=== PATIENT | female | born 1985 | race African-American/Black ===

== ENCOUNTER 2020-06-15 02:33 | Inpatient (IN) | payer OTHER ==
[2020-06-15] MEDS ORDERED: Sodium Chloride 0.9% 2.5 ML Syringe FLUSH PRN (03:03)
[2020-06-15] MEDS ORDERED: Carboprost Tromethamine 250 MCG/1 ML Amp IM PRN (03:03)
[2020-06-15] MEDS ORDERED: Water For Irrigation,Sterile 1,000 ML Container IRR PRN (03:03)
[2020-06-15] MEDS ORDERED: Sodium Chloride 0.9% 10 ML SDV IV PRN (03:03)
[2020-06-15] MEDS ORDERED: Methylergonovine 0.2 MG/1 ML Amp IM PRN (03:03)
[2020-06-15] MEDS ORDERED: Tranexamic Acid 1,000 MG in Sodium Chloride 0.9% 100 ML IV PRN (03:03)
[2020-06-15] MEDS ORDERED: Nalbuphine 10 MG/1 ML Vial IVPUSH PRN (03:03)
[2020-06-15] MEDS ORDERED: Lidocaine 1% 50 ML MDV INJECT PRN (03:03)
[2020-06-15] MEDS ORDERED: Butorphanol 1 MG/ML SDV IVPUSH PRN (03:03)
[2020-06-15] MEDS ORDERED: Misoprostol 200 MCG Tab PO PRN (03:03)
[2020-06-15] MEDS ORDERED: Sodium Chloride 0.9% 10 ML Syringe FLUSH PRN (03:03)
[2020-06-15] MEDS ORDERED: Oxytocin/0.9 % Sodium Chloride 30 UNIT/500 ML BAG IV SCH ×2 (03:15→09:45)
[2020-06-15] MEDS: Lactated Ringers 1,000 ML IV SCH ×3 (03:30→09:00)
[2020-06-15] MEDS ORDERED: Ropivacaine HCl/PF 100 ML ONE (03:56)
[2020-06-15] MEDS ORDERED: fentaNYL 100 MCG/2 ML SDV ONE ×2 (03:56→03:58)
[2020-06-15] MEDS ORDERED: Bupivacaine 0.25% 10 ML SDV ONE (03:57)
[2020-06-15] MEDS ORDERED: Oxytocin/0.9 % Sodium Chloride 30 UNIT/500 ML BAG ONE (04:21)
--- NOTE | 2020-06-15 04:28 | PCM.SN.2 ---
- Free Text/Narrative Note: Anesthesia time 9549-3214 Called to LDR 4 for difficult IV placement. US used to place 18g in RAC on first attempt (after chlorhexidine scrub). Tegaderm dressing applied. Tape to secure.
--- NOTE | 2020-06-15 04:33 | PCM.PREANE ---
Preanesthetic Assessment - Procedure Proposed Procedure: Late entry (bedside assessing patient at 0335) ASHIA for active labor. Approved by Dr. Lyons. - Anesthesia/Transfusion/Family Hx Anesthesia History: No Prior Anesthesia (Denies previous surgery or anesthesia. Denies epidural for first baby.) Family History of Anesthesia Reaction: No Transfusion History: No Prior Transfusion(s) - Review of Systems General: No Symptoms Pulmonary: No Symptoms Cardiovascular: No Symptoms Gastrointestinal: No Symptoms Neurological: No Symptoms Other: Reports: None (Denies any medical problems) - Physical Assessment NPO Status Date: 06/15/20 (NPO for food, clear liquids okay) NPO Status Time: 13:30 Height: 1.6 m Weight: 91.626 kg ASA Class: 2 Mental Status: Alert & Oriented x3 Airway Class: Mallampati = 2 Dentition: Reports: Normal Dentition Thyro-Mental Finger Breadths: 3 Mouth Opening Finger Breadths: 3 ROM/Head Extension: Full Lungs: Normal Respiratory Effort Cardiovascular: Regular Rate, Regular Rhythm - Lab Values: Laboratory Last Values WBC 8.48 K/uL (4.0-11.0) 06/15/20 03:20 RBC 5.05 M/uL (4.30-5.90) 06/15/20 03:20 Hgb 10.9 g/dL (12.0-16.0) L 06/15/20 03:20 Hct 34.7 % (36.0-46.0) L 06/15/20 03:20 MCV 68.7 fL (80.0-98.0) L 06/15/20 03:20 MCH 21.6 pg (27.0-32.0) L 06/15/20 03:20 MCHC 31.4 g/dL (31.0-37.0) 06/15/20 03:20 RDW Std Deviation 43.9 fl (28.0-62.0) 06/15/20 03:20 RDW Coeff of Pacheco 18 % (11.0-15.0) H 06/15/20 03:20 Plt Count 160 K/uL (150-400) 06/15/20 03:20 Nucleated RBC % 0.0 /100WBC 06/15/20 03:20 Nucleated RBCs # 0 K/uL 06/15/20 03:20 SARS-CoV-2 RNA (ANDREW) NEGATIVE (NEGATIVE) 06/15/20 03:16 Blood Type O POSITIVE 06/15/20 03:20 Antibody Screen NEGATIVE 06/15/20 03:20 - Allergies Allergies/Adverse Reactions: Allergies Allergy/AdvReac Type Severity Reaction Status Date / Time No Known Allergies Allergy Verified 06/14/20 19:23 - Anesthesia Plan Pre-Op Medication Ordered: None - Acknowledgements Anesthesia Type Planned: Epidural Pt an Appropriate Candidate for the Planned Anesthesia: Yes Alternatives and Risks of Anesthesia Discussed w Pt/Guardian: Yes Pt/Guardian Understands and Agrees with Anesthesia Plan: Yes PreAnesthesia Questionnaire - CURRENT (IN HOUSE) MEDS Current Meds: Current Medications Butorphanol Tartrate (Stadol) 1 mg IVPUSH Q1H PRN PRN Reason: Pain Carboprost Tromethamine (Hemabate Ds) 250 mcg IM ASDIRECTED PRN PRN Reason: Post Hemorrhage Oxytocin/Sodium Chloride (Oxytocin 30 Unit/500 Ml-Ns) 30 unit in 500 mls @ 500 mls/hr IV TITRATE [facility] Tranexamic Acid 1,000 mg/ (Sodium Chloride) 110 mls @ 660 mls/hr IV ONETIME PRN PRN Reason: Bleeding Lactated Ringer's (Ringers, Lactated) 1,000 mls @ 150 mls/hr IV ASDIRECTED [facility] Lidocaine HCl (Xylocaine 1%) 50 ml INJECT ONETIME PRN PRN Reason: Laceration repair Methylergonovine Maleate (Methergine) 0.2 mg IM ASDIRECTED PRN PRN Reason: Post Hemorrhage Misoprostol (Cytotec) 200 mcg PO ONETIME PRN PRN Reason: Post Hemorrhage Nalbuphine HCl (Nubain) 10 mg IVPUSH Q1H PRN PRN Reason: Pain (severe 7-10) Sodium Chloride (Saline Flush) 10 ml FLUSH ASDIRECTED PRN PRN Reason: Keep Vein Open Sodium Chloride (Saline Flush) 2.5 ml FLUSH ASDIRECTED PRN PRN Reason: Keep Vein Open Sodium Chloride (Normal Saline) 10 ml IV ASDIRECTED PRN PRN Reason: IV Use Sterile Water (Sterile Water For Irrigation) 1,000 ml IRR ASDIRECTED PRN PRN Reason: delivery Discontinued Medications Bupivacaine HCl (Sensorcaine-Mpf 0.25%) Confirm Administered Dose 10 ml .ROUTE .STK-MED ONE Stop: 06/15/20 03:58 Fentanyl (Sublimaze) Confirm Administered Dose 200 mcg .ROUTE .STK-MED ONE Stop: 06/15/20 03:57 Fentanyl (Sublimaze) Confirm Administered Dose 200 mcg .ROUTE .STK-MED ONE Stop: 06/15/20 03:59 Ropivacaine (Naropin 0.2%) Confirm Administered Dose 100 mls @ as directed .ROUTE .ST-MED ONE Stop: 06/15/20 03:57 Oxytocin/Sodium Chloride (Oxytocin 30 Unit/500 Ml-Ns) Confirm Administered Dose 30 unit in 500 mls @ as directed .ROUTE .ST-MED ONE Stop: 06/15/20 04:22
--- NOTE | 2020-06-15 04:41 | PCM.SN.2 ---
- Free Text/Narrative Note: Anesthesia time [id number] To LDR 4, physical assessment and medical history. Discussed risks, benefits, procedure, maintenance, [employer], and anesthesia coverage. All questions answered and concerns addressed. 0340- Consent signed by patient with RN witness. 0345- sitting position, 700ml fluid bolus complete and continuing to infuse, sterile prep and drape, eye protection, hat, sterile gloves. Attempt #1 successful at L3-4, TRISTAN with saline at 7cm with 17g Tuohy with no paresthesias. 0349- catheter threaded without resistance to 13cm. Negative to aspiration for both CSF and heme. 0350- test dose negative. 0400- bolus of 7ml 0.25% PF bupivicaine. 0404- infusion started. 0418- SBP 84, FHR symptomatic, 200mcg phenylephrine IV bolus. 0420- SBP now 110-120's, FHR has since recovered. 0433- T10 level achieved, pt reports satisfactory pain control, VSS (SBP 110-120's).
--- NOTE | 2020-06-15 04:43 | PCM.LDHP ---
L&D History of Present Illness - General Date of Service: 06/15/20 Admit Problem/Dx: Patient Status Order with Admit Dx/Problem 06/15/20 03:04 Patient Status [ADT] Routine Admission Diagnosis/Problem Admission Diagnosis/Problem - planned Source of Information: Patient History Limitations: Reports: No Limitations - History of Present Illness Improves with: Reports: None Worsens with: Reports: None Associated Symptoms: Reports: N - Related Data Allergies/Adverse Reactions: Allergies Allergy/AdvReac Type Severity Reaction Status Date / Time No Known Allergies Allergy Verified 06/14/20 19:23 H&P Review of Systems - Review of Systems: Review Of Systems: See Below General: Reports: No Symptoms HEENT: Reports: No Symptoms Pulmonary: Reports: No Symptoms Cardiovascular: Reports: No Symptoms Gastrointestinal: Reports: No Symptoms Genitourinary: Reports: No Symptoms Musculoskeletal: Reports: No Symptoms Skin: Reports: No Symptoms Psychiatric: Reports: No Symptoms Neurological: Reports: No Symptoms Hematologic/Lymphatic: Reports: No Symptoms Immunologic: Reports: No Symptoms L&D Exam - Exam Exam: See Below - Vital Signs Weight: 91.626 kg - OB Specific Contraction Intensity: Moderate Movement: Active Heart Tones: Present Presentation: Vertex - Knott Score Knott Score Cervix Position: Anterior Knott Score Consistency: Soft Knott Score Effacement: 51-70% Knott Score Dilation: > 5 cm Knott Score 's Station: -2 Knott Score Total: 10 - Exam General: Alert, Oriented HEENT: PERRLA, Conjunctiva Clear, EACs Clear, EOMI, Hearing Intact, Mucosa Moist & [place], Nares Patent, Normal Nasal Septum, Posterior Pharynx Clear, TMs Clear Neck: Supple, Trachea Midline Lungs: Clear to Auscultation, Normal Respiratory Effort Cardiovascular: Regular Rate, Regular Rhythm GI/Abdominal Exam: Normal Bowel Sounds, Soft, Non-Tender, No Organomegaly, No Distention, No Abnormal Bruit, No Mass, Pelvis Stable Rectal Exam: Normal Exam, Normal Rectal Tone Genitourinary: Normal external exam, Normal bimanual exam, Normal speculum exam Back Exam: Normal Inspection, Full Range of Motion Extremities: Normal Inspection, Normal Range of Motion, Non-Tender, No Pedal Edema, Normal Capillary Refill Skin: Warm, Dry, Intact Neurological: Cranial Nerves Intact, Reflexes Equal Bilateral Psychiatric: Alert, Normal Affect, Normal Mood - Patient Data Lab Results Last 24 hrs: Laboratory Results - last 24 hr 06/15/20 06/15/20 06/15/20 Range/Units 03:16 03:20 03:20 WBC 8.48 (4.0-11.0) K/uL RBC 5.05 (4.30-5.90) M/uL Hgb 10.9 L (12.0-16.0) g/dL Hct 34.7 L (36.0-46.0) % MCV 68.7 L (80.0-98.0) fL MCH 21.6 L (27.0-32.0) pg MCHC 31.4 (31.0-37.0) g/dL RDW Std Deviation 43.9 (28.0-62.0) fl RDW Coeff of Pacheco 18 H (11.0-15.0) % Plt Count 160 (150-400) K/uL Nucleated RBC % 0.0 /100WBC Nucleated RBCs # 0 K/uL SARS-CoV-2 RNA (ANDREW) NEGATIVE (NEGATIVE) Blood Type O POSITIVE Antibody Screen NEGATIVE Result Diagrams: 06/15/20 03:20 Problem List Initiated/Reviewed/Updated: Yes Orders Last 24hrs: Active Orders 24 hr Category Date Time Status Patient Status [ADT] Routine ADT 06/15/20 03:04 Active Heart Tones [RC] CONTINUOUS Care 06/15/20 03:04 Active Non Stress Test [RC] PER UNIT ROUTINE Care 06/15/20 03:04 Active May Shower [RC] ASDIRECTED Care 06/15/20 03:04 Active Notify Provider [RC] PRN Care 06/15/20 03:04 Active Up ad Leanne [RC] ASDIRECTED Care 06/15/20 03:04 Active Vaginal Exam [RC] PRN Care 06/15/20 03:04 Active Vital Signs [RC] PER UNIT ROUTINE Care 06/15/20 03:04 Active RPR (SYPHILIS SERO) W/ RFLX [REF] Routine Lab 06/15/20 03:20 Received Butorphanol [Stadol] Med 06/15/20 03:03 Active 1 mg IVPUSH Q1H PRN Carboprost Tromethamine [Hemabate DS] Med 06/15/20 03:03 Active 250 mcg IM ASDIRECTED PRN Lactated Ringers [Ringers, Lactated] 1,000 ml Med 06/15/20 03:15 Active IV ASDIRECTED Lidocaine 1% [Xylocaine 1%] Med 06/15/20 03:03 Active 50 ml INJECT ONETIME PRN Methylergonovine [Methergine] Med 06/15/20 03:03 Active 0.2 mg IM ASDIRECTED PRN Nalbuphine [Nubain] Med 06/15/20 03:03 Active 10 mg IVPUSH Q1H PRN Oxytocin/0.9 % Sodium Chloride [Oxytocin 30 Unit/500 ML Med 06/15/20 03:15 Active -NS] 30 unit in 500 ml IV TITRATE Sodium Chloride 0.9% [Normal Saline] Med 06/15/20 03:03 Active 10 ml IV ASDIRECTED PRN Sodium Chloride 0.9% [Saline Flush] Med 06/15/20 03:03 Active 10 ml FLUSH ASDIRECTED PRN Sodium Chloride 0.9% [Saline Flush] Med 06/15/20 03:03 Active 2.5 ml FLUSH ASDIRECTED PRN Tranexamic Acid [Cyklokapron] 1,000 mg Med 06/15/20 03:03 Active Sodium Chloride 0.9% [Normal Saline] 100 ml IV ONETIME Water For Irrigation,Sterile [Sterile Water for Med 06/15/20 03:03 Active Irrigation] 1,000 ml IRR ASDIRECTED PRN miSOPROStoL [Cytotec] Med 06/15/20 03:03 Active 200 mcg PO ONETIME PRN Scalp Electrode [WOMSER] Per Unit Routine Oth 06/15/20 03:04 Ordered Peripheral IV Insertion Adult [OM.PC] Routine Oth 06/15/20 03:04 Ordered Resuscitation Status Routine Resus Stat 06/15/20 03:03 Ordered Medication Orders Butorphanol Tartrate (Stadol) 1 mg IVPUSH Q1H PRN PRN Reason: Pain Carboprost Tromethamine (Hemabate Ds) 250 mcg IM ASDIRECTED PRN PRN Reason: Post Hemorrhage Oxytocin/Sodium Chloride (Oxytocin 30 Unit/500 Ml-Ns) 30 unit in 500 mls @ 500 mls/hr IV TITRATE [facility] Tranexamic Acid 1,000 mg/ (Sodium Chloride) 110 mls @ 660 mls/hr IV ONETIME PRN PRN Reason: Bleeding Lactated Ringer's (Ringers, Lactated) 1,000 mls @ 150 mls/hr IV ASDIRECTED [facility] Lidocaine HCl (Xylocaine 1%) 50 ml INJECT ONETIME PRN PRN Reason: Laceration repair Methylergonovine Maleate (Methergine) 0.2 mg IM ASDIRECTED PRN PRN Reason: Post Hemorrhage Misoprostol (Cytotec) 200 mcg PO ONETIME PRN PRN Reason: Post Hemorrhage Nalbuphine HCl (Nubain) 10 mg IVPUSH Q1H PRN PRN Reason: Pain (severe 7-10) Sodium Chloride (Saline Flush) 10 ml FLUSH ASDIRECTED PRN PRN Reason: Keep Vein Open Sodium Chloride (Saline Flush) 2.5 ml FLUSH ASDIRECTED PRN PRN Reason: Keep Vein Open Sodium Chloride (Normal Saline) 10 ml IV ASDIRECTED PRN PRN Reason: IV Use Sterile Water (Sterile Water For Irrigation) 1,000 ml IRR ASDIRECTED PRN PRN Reason: delivery Assessment/Plan Comment:: Term in active labor.
[2020-06-15] MEDS ORDERED: oxyCODONE 5 MG Tab PO PRN (16:21)
[2020-06-15] MEDS ORDERED: Docusate Sodium 100 MG Cap PO PRN (16:21)
[2020-06-15] MEDS ORDERED: Bisacodyl 10 MG Supp RECTAL PRN (16:21)
[2020-06-15] MEDS ORDERED: Ibuprofen 400 MG Tab PO PRN (16:21)
[2020-06-15] MEDS ORDERED: Benzocaine/Menthol 20%-0.5% Spray 78 GM Cannister TOP PRN (16:21)
[2020-06-15] MEDS ORDERED: Lanolin 100% Cream 7 GM Tube TOP PRN (16:21)
[2020-06-15] MEDS ORDERED: Acetaminophen 500 MG Tab PO PRN ×2 (16:21)
[2020-06-15] MEDS ORDERED: Witch Hazel Medicated Pads 40/Jar TOP PRN (16:21)
[2020-06-15] MEDS: Ibuprofen 800 MG Tab PO PRN (21:17)
[2020-06-16] MEDS: Ibuprofen 800 MG Tab PO PRN (07:56)
--- NOTE | 2020-06-16 08:27 | PCM48HPAN ---
Post Anesthesia Note - EVALUATION WITHIN 48HRS OF ANESTHETIC Vital Signs in Normal Range: Yes Patient Participated in Evaluation: Yes Respiratory Function Stable: Yes Airway Patent: Yes Cardiovascular Function Stable: Yes Hydration Status Stable: Yes Pain Control Satisfactory: Yes Nausea and Vomiting Control Satisfactory: Yes Mental Status Recovered: Yes Vital Signs: Last Vital Signs Temp 36.4 C 06/16/20 04:34 Pulse 76 06/16/20 04:34 Resp 16 06/16/20 04:34 BP 124/68 06/16/20 04:34 Pulse Ox 98 06/16/20 04:34 - COMMENTS/OBSERVATIONS Free Text/Narrative:: No problems noted post
--- NOTE | 2020-06-16 09:08 | PCM.DCSUM1 ---
Discharge Summary - Hospital Course Free Text/Narrative:: Shy is a 35 yo PPD0 S/P uncomplicated OVD to term NBF. O pos, RI, GBS neg. Hemodynamically stable, afebrile. Patient is fairly well and supplementing with formula, resting comfortably in bed with in bassinet at bedside. Patient reports she is eating, voiding, ambulating independently and without difficulty. Patient denies any problems or concerns at this time except mild-moderate intermittent uterine cramping relieved with ibuprofen. Patient reports small vaginal bleeding with no clots. Patient verbalizes her readiness to be discharged home. Diagnosis: Stroke: No - Discharge Data Discharge Date: 06/16/20 Discharge Disposition: Home, Self-Care 01 Condition: Good - Referral to Home Health Primary Care Physician: PCP None - Patient Instructions Diet: Usual Diet as Tolerated, Regular Diet as Tolerated, Drink 8-10+ Glasses/Day, No Alcoholic Beverages Activity: No Strenuous Activities Driving: May Drive Today Driving, Other: May use sitz bath for perineal comfort Showering/Bathing: May Shower Notify Provider of: Fever, Increased Pain, Swelling and Redness, Drainage, Nausea and/or Vomiting - Discharge Plan *PRESCRIPTION DRUG MONITORING PROGRAM REVIEWED*: No *COPY OF PRESCRIPTION DRUG MONITORING REPORT IN PATIENT HUGO: No Prescriptions/Med Rec: Ibuprofen [Motrin] 800 mg PO Q8H PRN #90 tablet PRN Reason: Pain Home Medications: Home Meds Ibuprofen [Motrin] 800 mg PO Q8H PRN #90 tablet 06/16/20 [Rx] Oxygen Therapy Mode: Room Air Referrals: [facility] [Outside] Destini Bravo CNM [Mid-] - 07/27/20 1:00 pm - Discharge Summary/Plan Comment DC Time >30 min.: Yes (Plan to D/C this PM) - General Info Date of Service: 06/16/20 Admission Dx/Problem (Free Text: Patient Status Order with Admit Dx/Problem 06/15/20 03:04 Patient Status [ADT] Routine Admission Diagnosis/Problem Admission Diagnosis/Problem - planned Functional Status: Reports: Pain Controlled - Review of Systems General: Reports: No Symptoms HEENT: Reports: No Symptoms Pulmonary: Reports: No Symptoms Cardiovascular: Reports: No Symptoms Gastrointestinal: Reports: No Symptoms Genitourinary: Reports: No Symptoms Musculoskeletal: Reports: No Symptoms Skin: Reports: No Symptoms Neurological: Reports: No Symptoms Psychiatric: Reports: No Symptoms - Patient Data Vitals - Most Recent: Last Vital Signs Temp 97.8 F 06/16/20 07:45 Pulse 72 06/16/20 07:45 Resp 14 06/16/20 07:45 BP 136/74 06/16/20 07:45 Pulse Ox 99 06/16/20 07:45 Weight - Most Recent: 202 lb Lab Results - Last 24 hrs: Laboratory Results - last 24 hr 06/16/20 Range/Units 05:11 Hgb 9.6 L (12.0-16.0) g/dL Hct 30.5 L (36.0-46.0) % Med Orders - Current: Current Medications Acetaminophen (Tylenol Extra Strength) 500 mg PO Q4H PRN PRN Reason: Pain Acetaminophen (Tylenol Extra Strength) 1,000 mg PO Q4H PRN PRN Reason: Pain Last Admin: 06/15/20 21:17 Dose: 1,000 mg Documented by: Benzocaine/Menthol (Dermoplast Pain Relief 20%-0.5% [place]) 78 gm TOP ASDIRECTED PRN PRN Reason: Perineal Comfort Measure Last Admin: 06/15/20 20:20 Dose: 1 spray Documented by: Bisacodyl (Dulcolax) 10 mg RECTAL ONETIME PRN PRN Reason: Constipation Docusate Sodium (Colace) 100 mg PO BID PRN PRN Reason: Constipation Emollient Ointment (Lansinoh Hpa) 0 gm TOP ASDIRECTED PRN PRN Reason: Sore Nipples Last Admin: 06/15/20 20:20 Dose: 1 gm Documented by: Ibuprofen (Motrin) 400 mg PO Q4H PRN PRN Reason: Pain Ibuprofen (Motrin) 800 mg PO Q6H PRN PRN Reason: Pain Last Admin: 06/16/20 07:56 Dose: 800 mg Documented by: Oxycodone HCl (Oxycodone) 5 mg PO Q2H PRN PRN Reason: Pain Witch Evangelina (Tucks) 1 pad TOP ASDIRECTED PRN PRN Reason: comfort care Last Admin: 06/15/20 20:19 Dose: 1 pad Documented by: Discontinued Medications Bupivacaine HCl (Sensorcaine-Mpf 0.25%) Confirm Administered Dose 10 ml .ROUTE .STK-MED ONE Stop: 06/15/20 03:58 Last Admin: 06/15/20 13:38 Dose: Not Given Documented by: Butorphanol Tartrate (Stadol) 1 mg IVPUSH Q1H PRN PRN Reason: Pain Carboprost Tromethamine (Hemabate Ds) 250 mcg IM ASDIRECTED PRN PRN Reason: Post Hemorrhage Fentanyl (Sublimaze) Confirm Administered Dose 200 mcg .ROUTE .STK-MED ONE Stop: 06/15/20 03:57 Last Admin: 06/15/20 13:38 Dose: Not Given Documented by: Fentanyl (Sublimaze) Confirm Administered Dose 200 mcg .ROUTE .ST-MED ONE Stop: 06/15/20 03:59 Last Admin: 06/15/20 13:38 Dose: Not Given Documented by: Oxytocin/Sodium Chloride (Oxytocin 30 Unit/500 Ml-Ns) 30 unit in 500 mls @ 500 mls/hr IV TITRATE [facility] Tranexamic Acid 1,000 mg/ (Sodium Chloride) 110 mls @ 660 mls/hr IV ONETIME PRN PRN Reason: Bleeding Lactated Ringer's (Ringers, Lactated) 1,000 mls @ 150 mls/hr IV ASDIRECTED [facility] Last Admin: 06/15/20 09:00 Dose: 150 mls/hr Documented by: Ropivacaine (Naropin 0.2%) Confirm Administered Dose 100 mls @ as directed .ROUTE .ST-MED ONE Stop: 06/15/20 03:57 Last Admin: 06/15/20 13:38 Dose: Not Given Documented by: Oxytocin/Sodium Chloride (Oxytocin 30 Unit/500 Ml-Ns) Confirm Administered Dose 30 unit in 500 mls @ as directed .ROUTE .ST-MED ONE Stop: 06/15/20 04:22 Last Admin: 06/15/20 13:38 Dose: Not Given Documented by: Oxytocin/Sodium Chloride (Oxytocin 30 Unit/500 Ml-Ns) 30 unit in 500 mls @ 2 mls/hr IV TITRATE [facility]; Protocol Last Infusion: 06/15/20 12:40 Dose: 0 munits/min, 0 mls/hr Documented by: Lidocaine HCl (Xylocaine 1%) 50 ml INJECT ONETIME PRN PRN Reason: Laceration repair Methylergonovine Maleate (Methergine) 0.2 mg IM ASDIRECTED PRN PRN Reason: Post Hemorrhage Misoprostol (Cytotec) 200 mcg PO ONETIME PRN PRN Reason: Post Hemorrhage Nalbuphine HCl (Nubain) 10 mg IVPUSH Q1H PRN PRN Reason: Pain (severe 7-10) Sodium Chloride (Saline Flush) 10 ml FLUSH ASDIRECTED PRN PRN Reason: Keep Vein Open Sodium Chloride (Saline Flush) 2.5 ml FLUSH ASDIRECTED PRN PRN Reason: Keep Vein Open Sodium Chloride (Normal Saline) 10 ml IV ASDIRECTED PRN PRN Reason: IV Use Sterile Water (Sterile Water For Irrigation) 1,000 ml IRR ASDIRECTED PRN PRN Reason: delivery - Exam General: Reports: Alert, Oriented, Cooperative, No Acute Distress HEENT: Reports: Pupils Equal, Pupils Reactive, Mucous Membr. Moist/[place] Neck: Reports: Supple Lungs: Reports: Clear to Auscultation, Normal Respiratory Effort Cardiovascular: Reports: Regular Rate, Regular Rhythm GI/Abdominal Exam: Normal Bowel Sounds, Soft, Non-Tender, No Organomegaly, No Distention (Female) Exam: Normal External Exam, Enlarged Uterus ( uterus, firm U-2), Vaginal Bleeding (Small rubra lochia, no clots) Rectal (Female) Exam: Deferred Back Exam: Reports: Normal Inspection, Full Range of Motion Extremities: Normal Inspection, Normal Range of Motion, Non-Tender, No Pedal Edema, Normal Capillary Refill Skin: Reports: Warm, Dry, Intact Wound/Incisions: Reports: No Drainage (Approximated, hemostatic, edematous) Neurological: Reports: No New Focal Deficit Psy/Mental Status: Reports: Alert, Normal Affect, Normal Mood
--- NOTE | 2020-06-16 10:38 | PCM.PNPP ---
- General Info Date of Service: 06/16/20 Functional Status: Reports: Pain Controlled - Review of Systems General: Reports: No Symptoms HEENT: Reports: No Symptoms Pulmonary: Reports: No Symptoms Cardiovascular: Reports: No Symptoms Gastrointestinal: Reports: No Symptoms Genitourinary: Reports: No Symptoms Musculoskeletal: Reports: No Symptoms Skin: Reports: No Symptoms Neurological: Reports: No Symptoms Psychiatric: Reports: No Symptoms - General Info Date of Service: 06/16/20 - Patient Data Vital Signs - Most Recent: Last Vital Signs Temp 36.6 C 06/16/20 07:45 Pulse 72 06/16/20 07:45 Resp 14 06/16/20 07:45 BP 136/74 06/16/20 07:45 Pulse Ox 99 06/16/20 07:45 Weight - Most Recent: 91.626 kg Lab Results - Last 24 Hours: Laboratory Results - last 24 hr 06/16/20 Range/Units 05:11 Hgb 9.6 L (12.0-16.0) g/dL Hct 30.5 L (36.0-46.0) % Med Orders - Current: Current Medications Acetaminophen (Tylenol Extra Strength) 500 mg PO Q4H PRN PRN Reason: Pain Acetaminophen (Tylenol Extra Strength) 1,000 mg PO Q4H PRN PRN Reason: Pain Last Admin: 06/15/20 21:17 Dose: 1,000 mg Documented by: Benzocaine/Menthol (Dermoplast Pain Relief 20%-0.5% [place]) 78 gm TOP ASDIRECTED PRN PRN Reason: Perineal Comfort Measure Last Admin: 06/15/20 20:20 Dose: 1 spray Documented by: Bisacodyl (Dulcolax) 10 mg RECTAL ONETIME PRN PRN Reason: Constipation Docusate Sodium (Colace) 100 mg PO BID PRN PRN Reason: Constipation Emollient Ointment (Lansinoh Hpa) 0 gm TOP ASDIRECTED PRN PRN Reason: Sore Nipples Last Admin: 06/15/20 20:20 Dose: 1 gm Documented by: Ibuprofen (Motrin) 400 mg PO Q4H PRN PRN Reason: Pain Ibuprofen (Motrin) 800 mg PO Q6H PRN PRN Reason: Pain Last Admin: 06/16/20 07:56 Dose: 800 mg Documented by: Oxycodone HCl (Oxycodone) 5 mg PO Q2H PRN PRN Reason: Pain Witch Evangelina (Tucks) 1 pad TOP ASDIRECTED PRN PRN Reason: comfort care Last Admin: 06/15/20 20:19 Dose: 1 pad Documented by: Discontinued Medications Bupivacaine HCl (Sensorcaine-Mpf 0.25%) Confirm Administered Dose 10 ml .ROUTE .STK-MED ONE Stop: 06/15/20 03:58 Last Admin: 06/15/20 13:38 Dose: Not Given Documented by: Butorphanol Tartrate (Stadol) 1 mg IVPUSH Q1H PRN PRN Reason: Pain Carboprost Tromethamine (Hemabate Ds) 250 mcg IM ASDIRECTED PRN PRN Reason: Post Hemorrhage Fentanyl (Sublimaze) Confirm Administered Dose 200 mcg .ROUTE .STK-MED ONE Stop: 06/15/20 03:57 Last Admin: 06/15/20 13:38 Dose: Not Given Documented by: Fentanyl (Sublimaze) Confirm Administered Dose 200 mcg .ROUTE .STNOZA-MED ONE Stop: 06/15/20 03:59 Last Admin: 06/15/20 13:38 Dose: Not Given Documented by: Oxytocin/Sodium Chloride (Oxytocin 30 Unit/500 Ml-Ns) 30 unit in 500 mls @ 500 mls/hr IV TITRATE GURMEET Tranexamic Acid 1,000 mg/ (Sodium Chloride) 110 mls @ 660 mls/hr IV ONETIME PRN PRN Reason: Bleeding Lactated Ringer's (Ringers, Lactated) 1,000 mls @ 150 mls/hr IV ASDIRECTED [facility] Last Admin: 06/15/20 09:00 Dose: 150 mls/hr Documented by: Ropivacaine (Naropin 0.2%) Confirm Administered Dose 100 mls @ as directed .ROUTE .STK-MED ONE Stop: 06/15/20 03:57 Last Admin: 06/15/20 13:38 Dose: Not Given Documented by: Oxytocin/Sodium Chloride (Oxytocin 30 Unit/500 Ml-Ns) Confirm Administered Dose 30 unit in 500 mls @ as directed .ROUTE .STK-MED ONE Stop: 06/15/20 04:22 Last Admin: 06/15/20 13:38 Dose: Not Given Documented by: Oxytocin/Sodium Chloride (Oxytocin 30 Unit/500 Ml-Ns) 30 unit in 500 mls @ 2 mls/hr IV TITRATE GURMEET; Protocol Last Infusion: 06/15/20 12:40 Dose: 0 munits/min, 0 mls/hr Documented by: Lidocaine HCl (Xylocaine 1%) 50 ml INJECT ONETIME PRN PRN Reason: Laceration repair Methylergonovine Maleate (Methergine) 0.2 mg IM ASDIRECTED PRN PRN Reason: Post Hemorrhage Misoprostol (Cytotec) 200 mcg PO ONETIME PRN PRN Reason: Post Hemorrhage Nalbuphine HCl (Nubain) 10 mg IVPUSH Q1H PRN PRN Reason: Pain (severe 7-10) Sodium Chloride (Saline Flush) 10 ml FLUSH ASDIRECTED PRN PRN Reason: Keep Vein Open Sodium Chloride (Saline Flush) 2.5 ml FLUSH ASDIRECTED PRN PRN Reason: Keep Vein Open Sodium Chloride (Normal Saline) 10 ml IV ASDIRECTED PRN PRN Reason: IV Use Sterile Water (Sterile Water For Irrigation) 1,000 ml IRR ASDIRECTED PRN PRN Reason: delivery - Infant Interaction Support Person: - Recovery Exam Fundal Tone: Firm Fundal Level: At Umbilicus Fundal Placement: Midline Lochia Amount: Scant Perineum Description: Edematous Episiotomy/Laceration: Approximated Bladder Status: Voiding - Exam General: Alert, Oriented HEENT: Pupils Equal Neck: Supple Lungs: Clear to Auscultation, Normal Respiratory Effort Cardiovascular: Regular Rate, Regular Rhythm GI/Abdominal Exam: Normal Bowel Sounds, Soft, Non-Tender, No Organomegaly, No Distention, No Abnormal Bruit, No Mass, Pelvis Stable Extremities: Normal Inspection, Normal Range of Motion, Non-Tender, No Pedal Edema, Normal Capillary Refill Skin: Warm, Dry, Intact Wound/Incisions: Healing Well Neurological: No New Focal Deficit Psy/Mental Status: Alert, Normal Affect, Normal Mood - Problem List Review Problem List Initiated/Reviewed/Updated: Yes - Plan Plan:: Term in active labor.
--- NOTE | 2020-06-16 11:33 | OR ---
SURGEON: German Lyons MD DATE OF PROCEDURE: 06/15/2020 This patient is 35 years old. She is para 1-0-0-1. She had 1 vaginal delivery 17 years ago. She is followed in our clinic primarily by our nurse midwifery service. The patient had uncomplicated care. Her diabetes screen was normal and her GBS status was negative. She was admitted in labor. At the time of the admission, she was 6 to 7 cm. She had regular contractions. She had a spontaneous rupture of the membrane, it was meconium tinged. The patient had epidural anesthesia for labor analgesia and then she required Pitocin for augmentation of labor. However, the Pitocin was stopped because the patient had variable deceleration. She continued to progress rather slowly. She progressed almost to anterior lip with a small lip, and I was able to reduce that lip without any problem manually. Because the patient was exhausted, Kiwi vacuum extraction was placed into place. With the patient pushing, I was able to accomplish delivery of the head without any problem. Destini Bravo, cover remover, finished the rest of the delivery. Fetus cried immediately. score and weight were not available at the time of the dictation. The placenta delivered spontaneous, complete, and intact. There was first-degree laceration, repaired without any problem. Estimated blood loss was 300 to 400 mL and heart rate was category 1 through the entire process of labor except on 1 of 2 occasions the patient had a variable deceleration. There was no complication in the delivery and the labor process. ROSALIE / SOCORRO /[id number]
--- NOTE | 2020-06-17 09:28 | PCM.PNPP ---
- General Info Date of Service: 06/17/20 Functional Status: Reports: Pain Controlled - Review of Systems General: Reports: No Symptoms HEENT: Reports: No Symptoms Pulmonary: Reports: No Symptoms Cardiovascular: Reports: No Symptoms Gastrointestinal: Reports: No Symptoms Genitourinary: Reports: No Symptoms Musculoskeletal: Reports: No Symptoms Skin: Reports: No Symptoms Neurological: Reports: No Symptoms Psychiatric: Reports: No Symptoms - General Info Date of Service: 06/17/20 - Patient Data Vital Signs - Most Recent: Last Vital Signs Temp 37.0 C 06/17/20 04:00 Pulse 71 06/17/20 04:00 Resp 16 06/17/20 04:00 BP 128/75 06/17/20 04:00 Pulse Ox 99 06/17/20 04:00 Weight - Most Recent: 91.626 kg Med Orders - Current: Current Medications Acetaminophen (Tylenol Extra Strength) 500 mg PO Q4H PRN PRN Reason: Pain Acetaminophen (Tylenol Extra Strength) 1,000 mg PO Q4H PRN PRN Reason: Pain Last Admin: 06/15/20 21:17 Dose: 1,000 mg Documented by: Benzocaine/Menthol (Dermoplast Pain Relief 20%-0.5% [place]) 78 gm TOP ASDIRECTED PRN PRN Reason: Perineal Comfort Measure Last Admin: 06/15/20 20:20 Dose: 1 spray Documented by: Bisacodyl (Dulcolax) 10 mg RECTAL ONETIME PRN PRN Reason: Constipation Docusate Sodium (Colace) 100 mg PO BID PRN PRN Reason: Constipation Emollient Ointment (Lansinoh Hpa) 0 gm TOP ASDIRECTED PRN PRN Reason: Sore Nipples Last Admin: 06/15/20 20:20 Dose: 1 gm Documented by: Ibuprofen (Motrin) 400 mg PO Q4H PRN PRN Reason: Pain Ibuprofen (Motrin) 800 mg PO Q6H PRN PRN Reason: Pain Last Admin: 06/16/20 07:56 Dose: 800 mg Documented by: Oxycodone HCl (Oxycodone) 5 mg PO Q2H PRN PRN Reason: Pain Witch Evangelina (Tucks) 1 pad TOP ASDIRECTED PRN PRN Reason: comfort care Last Admin: 06/15/20 20:19 Dose: 1 pad Documented by: Discontinued Medications Bupivacaine HCl (Sensorcaine-Mpf 0.25%) Confirm Administered Dose 10 ml .ROUTE .STK-MED ONE Stop: 06/15/20 03:58 Last Admin: 06/15/20 13:38 Dose: Not Given Documented by: Butorphanol Tartrate (Stadol) 1 mg IVPUSH Q1H PRN PRN Reason: Pain Carboprost Tromethamine (Hemabate Ds) 250 mcg IM ASDIRECTED PRN PRN Reason: Post Hemorrhage Fentanyl (Sublimaze) Confirm Administered Dose 200 mcg .ROUTE .STK-MED ONE Stop: 06/15/20 03:57 Last Admin: 06/15/20 13:38 Dose: Not Given Documented by: Fentanyl (Sublimaze) Confirm Administered Dose 200 mcg .ROUTE .STK-MED ONE Stop: 06/15/20 03:59 Last Admin: 06/15/20 13:38 Dose: Not Given Documented by: Oxytocin/Sodium Chloride (Oxytocin 30 Unit/500 Ml-Ns) 30 unit in 500 mls @ 500 mls/hr IV TITRATE GURMEET Tranexamic Acid 1,000 mg/ (Sodium Chloride) 110 mls @ 660 mls/hr IV ONETIME PRN PRN Reason: Bleeding Lactated Ringer's (Ringers, Lactated) 1,000 mls @ 150 mls/hr IV ASDIRECTED GURMEET Last Admin: 06/15/20 09:00 Dose: 150 mls/hr Documented by: Ropivacaine (Naropin 0.2%) Confirm Administered Dose 100 mls @ as directed .ROUTE .ST-MED ONE Stop: 06/15/20 03:57 Last Admin: 06/15/20 13:38 Dose: Not Given Documented by: Oxytocin/Sodium Chloride (Oxytocin 30 Unit/500 Ml-Ns) Confirm Administered Dose 30 unit in 500 mls @ as directed .ROUTE .STK-MED ONE Stop: 06/15/20 04:22 Last Admin: 06/15/20 13:38 Dose: Not Given Documented by: Oxytocin/Sodium Chloride (Oxytocin 30 Unit/500 Ml-Ns) 30 unit in 500 mls @ 2 mls/hr IV TITRATE GURMEET; Protocol Last Infusion: 06/15/20 12:40 Dose: 0 munits/min, 0 mls/hr Documented by: Lidocaine HCl (Xylocaine 1%) 50 ml INJECT ONETIME PRN PRN Reason: Laceration repair Methylergonovine Maleate (Methergine) 0.2 mg IM ASDIRECTED PRN PRN Reason: Post Hemorrhage Misoprostol (Cytotec) 200 mcg PO ONETIME PRN PRN Reason: Post Hemorrhage Nalbuphine HCl (Nubain) 10 mg IVPUSH Q1H PRN PRN Reason: Pain (severe 7-10) Sodium Chloride (Saline Flush) 10 ml FLUSH ASDIRECTED PRN PRN Reason: Keep Vein Open Sodium Chloride (Saline Flush) 2.5 ml FLUSH ASDIRECTED PRN PRN Reason: Keep Vein Open Sodium Chloride (Normal Saline) 10 ml IV ASDIRECTED PRN PRN Reason: IV Use Sterile Water (Sterile Water For Irrigation) 1,000 ml IRR ASDIRECTED PRN PRN Reason: delivery - Infant Interaction Infant Disposition, : [place] in Room with Family Support Person: - Recovery Exam Fundal Tone: Firm Fundal Level: 1 Fingerbreadths Below Umbilicus Fundal Placement: Midline Lochia Amount: Scant Lochia Color: Rubra/Red Perineum Description: Edematous Episiotomy/Laceration: Approximated Bladder Status: Voiding - Exam General: Alert, Oriented HEENT: Pupils Equal Neck: Supple Lungs: Clear to Auscultation, Normal Respiratory Effort Cardiovascular: Regular Rate, Regular Rhythm GI/Abdominal Exam: Normal Bowel Sounds, Soft, Non-Tender, No Organomegaly, No Distention, No Abnormal Bruit, No Mass, Pelvis Stable Extremities: Normal Inspection, Normal Range of Motion, Non-Tender, No Pedal Edema, Normal Capillary Refill Skin: Warm, Dry, Intact Wound/Incisions: Healing Well Neurological: No New Focal Deficit Psy/Mental Status: Alert, Normal Affect, Normal Mood - Problem List Review Problem List Initiated/Reviewed/Updated: Yes - Assessment Assessment:: Held the discharge of this patient yesterday because the patient baby is not discharged because of bilirubin light situation she will be discharged today - Plan Plan:: Term in active labor.
== END 2020-06-17 14:00 | disposition home or self-care (01) | DRG 807 ==
LOC: MW.OBCHECK 02:33 → MW.OB 02:34 → MW.OBCHECK 03:04 → MW.OB 03:04 → OBSVTOIN 16:00 → MW.OB 20:36
PROVIDERS: ADMIT Obstetrics & Gynecology; ATTEND Obstetrics & Gynecology
PROC: 10D07Z6 Extraction of Products of Conception, Vacuum, Via Natural or Artificial Opening (ICD-10-PCS; principal; 2020-06-15)
PROC: 0HQ9XZZ Repair Perineum Skin, External Approach (ICD-10-PCS; 2020-06-15)
PROC: 3E0R3BZ Introduction of Anesthetic Agent into Spinal Canal, Percutaneous Approach (ICD-10-PCS; 2020-06-15)
PROC: 00HU33Z Insertion of Infusion Device into Spinal Canal, Percutaneous Approach (ICD-10-PCS; 2020-06-15)
DX: O77.0 Labor and delivery complicated by meconium in amniotic fluid (principal); Z37.0 Single live birth; O70.0 First degree perineal laceration during delivery; O76 Abnormality in fetal heart rate and rhythm complicating labor and delivery; Z20.828 Contact with and (suspected) exposure to other viral communicable diseases; Z3A.38 38 weeks gestation of pregnancy
CPT/HCPCS: 01967; 36410; 36415; 59025; 59409; 85014; 85018; 85027; 86592; 86850; 86900; 86901; A9270-GY; J2590; J7120; U0002

== ENCOUNTER 2023-05-02 09:39 | Emergency (ER) | payer BC ==
[2023-05-02 10:25] LABS: APPEARANCE,URINE SLT CLOUDY; BILIRUBIN,URINE NEGATIVE (NEGATIVE); COLOR,URINE YELLOW; GLUCOSE,URINE NEGATIVE (NEGATIVE); KETONES,URINE NEGATIVE (NEGATIVE); LEUKOCYTE ESTERASE,URINE NEGATIVE (NEGATIVE); NITRITE,URINE NEGATIVE (NEGATIVE); OCCULT BLOOD,URINE LARGE (NEGATIVE); PROTEIN,URINE TRACE mg/dL (NEGATIVE); UROBILINOGEN,URINE 0.2 EU/dL (<2.0)
[2023-05-02 11:01] LABS: AMORPHOUS SEDIMENT,URINE LIGHT (NEGATIVE); BACTERIA,URINE 1+ (NEGATIVE); EPITHELIAL CELLS,URINE FEW (NONE-FEW); RBC,URINE 25-30 (0-2/HPF); WBC,URINE NONE SEEN (0-5/HPF)
[2023-05-02 11:15] LABS: BASOPHILS PERCENT AUTO 0.3 % (0.0-1.5); HEMATOCRIT 33.4 % (36.0-46.0); HEMOGLOBIN 10.6 g/dL (12.0-16.0); LYMPHOCYTES PERCENT AUTO 26.1 % (16.0-40.0); MEAN CORPUSCULAR HEMOGLOBIN 21.5 pg (27.0-32.0); MEAN CORPUSCULAR HGB CONC 31.7 g/dL (31.0-37.0); MEAN CORPUSCULAR VOLUME 67.9 fL (80.0-98.0); MONOCYTES ABSOLUTE AUTO 0.3 K/uL (0.0-0.8); MONOCYTES PERCENT AUTO 7.1 % (0.0-15.0); NEUTROPHILS ABSOLUTE AUTO 2.6 K/uL (1.4-5.7); NEUTROPHILS PERCENT AUTO 65.5 % (48.0-80.0); NRBC ABSOLUTE 0 K/uL; PLATELET COUNT,PLT 149 K/uL (150-400); RED BLOOD CELL COUNT 4.92 M/uL (4.30-5.90); WHITE BLOOD CELL COUNT,WBC 3.95 K/uL (4.0-11.0)
== END 2023-05-02 12:56 | disposition home or self-care (01) ==
LOC: MW.ED 09:39
DX: O20.9 Hemorrhage in early pregnancy, unspecified (principal); Z3A.12 12 weeks gestation of pregnancy
CPT/HCPCS: 36415; 76801; 76801-26; 81001; 84702; 85025; 86900; 86901; 99283; 99284

== ENCOUNTER 2023-06-23 20:21 | Emergency (ER) | payer BC ==
[2023-06-23] MEDS ORDERED: Sodium Chloride 0.9% 10 ML Syringe FLUSH PRN (21:19)
[2023-06-23] MEDS ORDERED: Sodium Chloride 0.9% 2.5 ML Syringe FLUSH PRN (21:19)
[2023-06-23 21:40] LABS: BASOPHILS PERCENT AUTO 0.4 % (0.0-1.5); EOSINOPHILS PERCENT AUTO 0.4 % (0.0-7.0); HEMATOCRIT 35.2 % (36.0-46.0); LYMPHOCYTES ABSOLUTE AUTO 1.6 K/uL (0.6-2.4); LYMPHOCYTES PERCENT AUTO 32.1 % (16.0-40.0); MEAN CORPUSCULAR HEMOGLOBIN 21.4 pg (27.0-32.0); MEAN CORPUSCULAR HGB CONC 31.3 g/dL (31.0-37.0); MEAN CORPUSCULAR VOLUME 68.6 fL (80.0-98.0); MONOCYTES ABSOLUTE AUTO 0.4 K/uL (0.0-0.8); MONOCYTES PERCENT AUTO 8.1 % (0.0-15.0); NRBC ABSOLUTE 0 K/uL; RED BLOOD CELL COUNT 5.13 M/uL (4.30-5.90); WHITE BLOOD CELL COUNT,WBC 5.04 K/uL (4.0-11.0)
[2023-06-23 21:54] LABS: PLATELET COUNT,PLT 149 K/uL (150-400)
[2023-06-23 22:02] LABS: A/G RATIO 0.8 (0.9-1.6); ALBUMIN 3.6 g/dL (3.4-5.0); BILIRUBIN TOTAL 0.2 mg/dL (0.2-1.0); CALCIUM 8.7 mg/dL (8.5-10.1); CARBON DIOXIDE,CO2 24.8 mmol/L (21.0-32.0); CREATININE 0.6 mg/dL (0.6-1.0); EST CRCL DRUG DOSING (CG) 103.1 mL/min
[2023-06-23 22:04] LABS: BILIRUBIN,URINE NEGATIVE (NEGATIVE); COLOR,URINE YELLOW; GLUCOSE,URINE NEGATIVE (NEGATIVE); KETONES,URINE NEGATIVE (NEGATIVE); LEUKOCYTE ESTERASE,URINE NEGATIVE (NEGATIVE); NITRITE,URINE NEGATIVE (NEGATIVE); OCCULT BLOOD,URINE LARGE (NEGATIVE); PH,URINE 6.5 (5.0-8.0); PROTEIN,URINE NEGATIVE (NEGATIVE); UROBILINOGEN,URINE 0.2 EU/dL (<2.0)
[2023-06-23 22:06] LABS: APPEARANCE,URINE SLT CLOUDY; BACTERIA,URINE FEW (NEGATIVE); EPITHELIAL CELLS,URINE FEW (NONE-FEW); MUCUS,URINE LIGHT (NONE-MOD); RBC,URINE 15-20 (0-2/HPF)
== END 2023-06-23 22:55 | disposition home or self-care (01) ==
LOC: MW.ED 20:21
DX: O20.9 Hemorrhage in early pregnancy, unspecified (principal)
CPT/HCPCS: 36415; 80053; 81001; 83690; 84702; 85025; 99284; J3490; 99283

== ENCOUNTER 2023-07-03 00:29 | Observation (INO) | payer BC ==
[2023-07-03] MEDS ORDERED: Ondansetron 4 MG/2 ML SDV IVPUSH PRN (00:50)
[2023-07-03] MEDS ORDERED: Labetalol 100 MG Tab PO ONE ×2 (00:59→08:49)
[2023-07-03 03:38] LABS: HEMATOCRIT 33.9 % (37.0-47.0); HEMOGLOBIN 10.5 g/dL (12.0-16.0); MEAN CORPUSCULAR HEMOGLOBIN 21.1 pg (28.0-32.0); MEAN CORPUSCULAR VOLUME 68.1 fL (83.0-99.0); MEAN PLATELET VOLUME 10.8 fL (9.4-12.3); PLATELET COUNT,PLT 169 K/uL (150-400); RED BLOOD CELL COUNT 4.98 M/uL (4.10-5.30); WHITE BLOOD CELL COUNT,WBC 5.39 K/uL (3.9-11.3)
[2023-07-03 03:47] LABS: BILIRUBIN,URINE NEGATIVE (NEGATIVE); COLOR,URINE YELLOW; GLUCOSE,URINE NEGATIVE (NEGATIVE); KETONES,URINE NEGATIVE (NEGATIVE); LEUKOCYTE ESTERASE,URINE NEGATIVE (NEGATIVE); NITRITE,URINE NEGATIVE (NEGATIVE); OCCULT BLOOD,URINE LARGE (NEGATIVE); PH,URINE 6.5 (5.0-8.0); PROTEIN,URINE NEGATIVE (NEGATIVE); UROBILINOGEN,URINE 0.2 EU/dL (<2.0)
[2023-07-03] MEDS ORDERED: Misoprostol 200 MCG Tab VAG SCH (04:00)
[2023-07-03] MEDS ORDERED: Misoprostol 200 MCG Tab PO PRN (04:46)
[2023-07-03] MEDS ORDERED: Sodium Chloride 0.9% 10 ML Syringe FLUSH PRN (04:46)
[2023-07-03] MEDS ORDERED: Sodium Chloride 0.9% 20 ML SDV IV PRN (04:46)
[2023-07-03] MEDS ORDERED: Carboprost Tromethamine 250 MCG/1 mL Vial IM PRN (04:46)
[2023-07-03] MEDS ORDERED: Methylergonovine 0.2 MG/1 ML Amp IM PRN (04:46)
[2023-07-03] MEDS ORDERED: Lidocaine 1% 50 ML MDV INJECT PRN (04:46)
[2023-07-03] MEDS ORDERED: Water For Irrigation,Sterile 1,000 ML Container IRR PRN (04:46)
[2023-07-03] MEDS ORDERED: Tranexamic Acid IN NACL,ISO-OS 1,000 MG in Premix Bag 1 BAG IV PRN ×2 (04:46)
[2023-07-03] MEDS ORDERED: Sodium Chloride 0.9% 2.5 ML Syringe FLUSH PRN (04:46)
[2023-07-03] MEDS ORDERED: Oxytocin/0.9 % Sodium Chloride 30 UNIT/500 ML BAG IV SCH (05:00)
[2023-07-03 05:01] LABS: INR 1.12 (0.86-1.11)
[2023-07-03 05:18] LABS: APPEARANCE,URINE HAZY
[2023-07-03 05:19] LABS: BACTERIA,URINE RARE (NEGATIVE); EPITHELIAL CELLS,URINE RARE (NONE-FEW); WBC,URINE 0-2 (0-5/HPF)
[2023-07-03] MEDS ORDERED: Morphine 2 MG/ML SYRINGE IVPUSH ONE (08:09)
[2023-07-03] MEDS ORDERED: ePHEDrine 50 MG/ML SDV IVPUSH PRN ×2 (08:16)
[2023-07-03] MEDS ORDERED: Phenylephrine HCl 0.5 MG/5 ML AMP IVPUSH PRN (08:16)
[2023-07-03] MEDS ORDERED: Ropivacaine HCl/PF 400 MG in Premix Bag 1 BAG EPIDUR SCH (08:30)
[2023-07-03] MEDS ORDERED: Oxytocin 10 Units/1 ML SDV ONE (08:31)
[2023-07-03] MEDS ORDERED: Oxytocin 10 Units/1 ML SDV IM ONE (08:46)
== END 2023-07-03 16:45 | disposition home or self-care (01) ==
LOC: MW.OB 00:29
PROVIDERS: ADMIT Obstetrics & Gynecology Obstetrics; ATTEND Obstetrics & Gynecology Obstetrics
DX: O02.1 Missed abortion (principal)
CPT/HCPCS: 36415; 59025; 81001; 85027; 85610; 86850; 86900; 86901; A9270; J2590; 96372; G0378

== ENCOUNTER 2025-06-16 13:32 | Inpatient (IN) | payer BC ==
[2025-06-16] MEDS ORDERED: Sodium Chloride 0.9% 2.5 ML Syringe FLUSH PRN (13:58)
[2025-06-16] MEDS ORDERED: Sodium Chloride 0.9% 10 ML Syringe FLUSH PRN (13:58)
[2025-06-16] MEDS ORDERED: Calcium Gluconate 10% 1 GM/10 ML SDV IV PRN (13:58)
[2025-06-16] MEDS ORDERED: ePHEDrine 50 MG/ML SDV IVPUSH PRN (14:31)
[2025-06-16 14:34] LABS: NRBC ABSOLUTE 0.00 K/uL (0.00-0.02); NRBC PERCENT 0.0 /100WBC (0.0-0.2); PLATELET COUNT,PLT 136 K/uL (150-400); RED BLOOD CELL COUNT 4.78 M/uL (4.10-5.30); WHITE BLOOD CELL COUNT,WBC 5.08 K/uL (3.9-11.3)
[2025-06-16] MEDS ORDERED: Ropivacaine HCl/PF 400 MG in Premix Bag 1 BAG EPIDUR SCH (14:45)
[2025-06-16] MEDS ORDERED: dexmedeTOMIDine HCl 200 MCG/2 ML SDV EPIDUR SCH (14:45)
[2025-06-16 14:55] LABS: A/G RATIO 0.7 (0.9-1.6); ALANINE AMINOTRANSFERASE,ALT 14.0 IU/L (14-63); ASPARTATE AMNIOTRANSFERASE,AST 17.0 IU/L (15-37); BILIRUBIN TOTAL 0.3 mg/dL (0.2-1.0); BLOOD UREA NITROGEN,BUN 6.0 mg/dL (7.0-18.0); CARBON DIOXIDE,CO2 25.4 mmol/L (21.0-32.0); CHLORIDE,CL 103.0 mmol/L (98-107); CREATININE 0.7 mg/dL (0.6-1.0); EST CRCL DRUG DOSING (CG) 86.6 mL/min; GLUCOSE RANDOM 78.0 mg/dL (74-106); POTASSIUM,K 4.1 mmol/L (3.5-5.1); PROTEIN TOTAL,TP 6.7 g/dL (6.4-8.2); SODIUM,NA 136.0 mmol/L (136-145)
[2025-06-16 14:57] LABS: ESTIMATED GFR 111.0 mL/min (>60)
[2025-06-16 15:37] LABS: APPEARANCE,URINE CLEAR; GLUCOSE,URINE NEGATIVE (NEGATIVE); OCCULT BLOOD,URINE NEGATIVE (NEGATIVE)
[2025-06-16 15:43] LABS: EPITHELIAL CELLS,URINE RARE (NONE-FEW)
[2025-06-16 16:01] LABS: CREATININE,URINE RAND 24.2 mg/dL
[2025-06-16 16:03] LABS: PROTEIN,URINE RANDOM < 6.0 mg/dL (<11.9)
[2025-06-16] MEDS: Lactated Ringers 1,000 ML IV SCH (16:30)
[2025-06-16] MEDS: Magnesium Sulfate 2 GM/50 mL 6 GM in Premix Bag 1 BAG IV ONE (16:36)
[2025-06-16] MEDS: Magnesium Sulfate 20 GM/500mL 20 GM/500 ML BAG IV SCH (17:13)
[2025-06-16] MEDS: Labetalol 100 MG/20 ML MDV IVPUSH ONE (19:50)
[2025-06-16] MEDS: Misoprostol 25 MCG (1/4 of 100 MCG) Tab VAG PRN (20:35)
[2025-06-16] MEDS: Misoprostol 25 MCG (1/4 of 100 MCG) Tab PO ONE (20:35)
[2025-06-17] MEDS: Misoprostol 25 MCG (1/4 of 100 MCG) Tab VAG PRN (02:07)
[2025-06-17 05:45] LABS: BASOPHILS ABSOLUTE AUTO 0.02 K/uL (0.00-0.20); BASOPHILS PERCENT AUTO 0.4 % (0.0-1.0); EOSINOPHILS ABSOLUTE AUTO 0.03 K/uL (0.00-0.45); EOSINOPHILS PERCENT AUTO 0.6 % (0.0-6.0); IMMATURE GRAN ABSOLUTE AUTO 0.02 K/uL (0.00-0.05); IMMATURE GRAN PERCENT AUTO 0.4 % (0.0-0.4); LYMPHOCYTES ABSOLUTE AUTO 1.59 K/uL (1.00-4.80); LYMPHOCYTES PERCENT AUTO 30.8 % (24.0-44.0); MONOCYTES ABSOLUTE AUTO 0.71 K/uL (0.00-0.80); MONOCYTES PERCENT AUTO 13.7 % (0.0-8.0); NEUTROPHILS ABSOLUTE AUTO 2.80 K/uL (1.80-7.70); NEUTROPHILS PERCENT AUTO 54.1 % (41.0-71.0); NRBC ABSOLUTE 0.00 K/uL (0.00-0.02); NRBC PERCENT 0.0 /100WBC (0.0-0.2); PLATELET COUNT,PLT 134 K/uL (150-400); RED BLOOD CELL COUNT 4.79 M/uL (4.10-5.30); WHITE BLOOD CELL COUNT,WBC 5.17 K/uL (3.9-11.3)
[2025-06-17 06:14] LABS: A/G RATIO 0.6 (0.9-1.6); ALANINE AMINOTRANSFERASE,ALT 13.0 IU/L (14-63); ASPARTATE AMNIOTRANSFERASE,AST 15.0 IU/L (15-37); BILIRUBIN TOTAL 0.2 mg/dL (0.2-1.0); BLOOD UREA NITROGEN,BUN 4.0 mg/dL (7.0-18.0); CARBON DIOXIDE,CO2 21.6 mmol/L (21.0-32.0); CHLORIDE,CL 103.0 mmol/L (98-107); CREATININE 0.6 mg/dL (0.6-1.0); EST CRCL DRUG DOSING (CG) 101.04 mL/min; ESTIMATED GFR 115.0 mL/min (>60); GLUCOSE RANDOM 112.0 mg/dL (74-106); POTASSIUM,K 3.7 mmol/L (3.5-5.1); PROTEIN TOTAL,TP 6.4 g/dL (6.4-8.2); SODIUM,NA 135.0 mmol/L (136-145)
[2025-06-17] MEDS: Labetalol 100 MG/20 ML MDV ONE ×2 (08:59→22:18)
[2025-06-17] MEDS ORDERED: Sodium Chloride 0.9% 10 ML Syringe FLUSH PRN (17:20)
[2025-06-17] MEDS ORDERED: Butorphanol 1 MG/ML SDV IVPUSH PRN (17:20)
[2025-06-17] MEDS ORDERED: Sodium Chloride 0.9% 2.5 ML Syringe FLUSH PRN (17:20)
[2025-06-17] MEDS ORDERED: Water For Irrigation,Sterile 1,000 ML Container IRR PRN (17:20)
[2025-06-17] MEDS ORDERED: Ondansetron 4 MG/2 ML SDV IVPUSH PRN ×3 (17:20→23:13)
[2025-06-17] MEDS ORDERED: Carboprost Tromethamine 250 MCG/1 mL Vial IM PRN (17:20)
[2025-06-17] MEDS ORDERED: Oxytocin/0.9 % Sodium Chloride 30 UNIT/500 ML BAG IV SCH (17:30)
[2025-06-17] MEDS ORDERED: Lactated Ringers 1,000 ML IV SCH (17:30)
[2025-06-17] MEDS ORDERED: Misoprostol 25 MCG (1/4 of 100 MCG) Tab VAG PRN (20:30)
[2025-06-17 20:37] LABS: MEAN PLATELET VOLUME 10.1 fL (9.4-12.3); NRBC ABSOLUTE 0.00 K/uL (0.00-0.02); NRBC PERCENT 0.0 /100WBC (0.0-0.2); PLATELET COUNT,PLT 158 K/uL (150-400); RED BLOOD CELL COUNT 5.28 M/uL (4.10-5.30); WHITE BLOOD CELL COUNT,WBC 5.90 K/uL (3.9-11.3)
[2025-06-17 21:06] LABS: A/G RATIO 0.6 (0.9-1.6); ALANINE AMINOTRANSFERASE,ALT 16.0 IU/L (14-63); ASPARTATE AMNIOTRANSFERASE,AST 16.0 IU/L (15-37); BILIRUBIN TOTAL 0.3 mg/dL (0.2-1.0); BLOOD UREA NITROGEN,BUN 5.0 mg/dL (7.0-18.0); CARBON DIOXIDE,CO2 25.3 mmol/L (21.0-32.0); CHLORIDE,CL 101.0 mmol/L (98-107); CREATININE 0.8 mg/dL (0.6-1.0); EST CRCL DRUG DOSING (CG) 75.78 mL/min; GLUCOSE RANDOM 108.0 mg/dL (74-106); POTASSIUM,K 4.0 mmol/L (3.5-5.1); PROTEIN TOTAL,TP 6.9 g/dL (6.4-8.2); SODIUM,NA 133.0 mmol/L (136-145)
[2025-06-17 21:16] LABS: ESTIMATED GFR 94.0 mL/min (>60)
[2025-06-17 21:21] LABS: BAND ABSOLUTE MAN 0.06; BAND PERCENT MAN 1 %; EOSINOPHILS ABSOLUTE MAN 0.06 K/uL (0.00-0.45); EOSINOPHILS PERCENT MAN 1 % (0-6); LYMPHOCYTES ABSOLUTE MAN 1.48 K/uL (1.00-4.80); LYMPHOCYTES PERCENT MAN 25 % (24-44); MONOCYTES ABSOLUTE MAN 0.59 K/uL (0.00-0.80); MONOCYTES PERCENT MAN 10 % (0-8); SEG NEUTROPHILS ABSOLUTE MAN 3.72 K/uL (1.80-7.70); SEG NEUTROPHILS PERCENT MAN 63 % (41-71)
[2025-06-17] MEDS ORDERED: fentaNYL 100 MCG/2 ML SDV ONE (22:31)
[2025-06-17] MEDS ORDERED: Morphine PF 10 MG/10 ML SDV ONE (22:31)
[2025-06-17] MEDS ORDERED: Ondansetron 4 MG/2 ML SDV ONE ×2 (22:32→22:35)
[2025-06-17] MEDS ORDERED: ePHEDrine 50 MG/ML SDV ONE (22:35)
[2025-06-17] MEDS ORDERED: Oxytocin 10 Units/1 ML SDV ONE ×2 (22:35→23:09)
[2025-06-17] MEDS ORDERED: Phenylephrine 1% 10 MG/ML SDV ONE (22:35)
[2025-06-17] MEDS ORDERED: Dexamethasone 4 MG/ML 5 ML MDV ONE (22:35)
[2025-06-17] MEDS ORDERED: dexmedeTOMIDine HCl 200 MCG/2 ML SDV ONE (22:35)
[2025-06-17] MEDS ORDERED: Ropivacaine 0.5% 5 MG/ML 30 ML SDV ONE (22:35)
[2025-06-17] MEDS ORDERED: droPERidol 2.5 MG/ML SDV ONE (23:04)
[2025-06-17] MEDS ORDERED: Nalbuphine 10 MG/1 ML Vial IVPUSH PRN (23:13)
[2025-06-17] MEDS ORDERED: Acetaminophen/oxyCODONE 325-5 MG Tab PO PRN (23:13)
[2025-06-17] MEDS ORDERED: fentaNYL 100 MCG/2 ML SDV IVPUSH PRN (23:13)
[2025-06-17] MEDS ORDERED: diphenhydrAMINE 50 MG/ML SDV IVPUSH PRN (23:13)
[2025-06-17] MEDS ORDERED: fentaNYL 50 MCG/ML SDV IVPUSH PRN (23:13)
[2025-06-17] MEDS ORDERED: Naloxone 0.4 MG/ML SDV IVPUSH PRN (23:13)
[2025-06-17] MEDS ORDERED: Albuterol 0.083% 2.5 MG/3 ML Neb Soln NEB PRN (23:13)
[2025-06-17] MEDS ORDERED: Ketorolac 30 MG/ML SDV ONE (23:37)
[2025-06-18 00:38] LABS: PH,UMBILICAL ARTERIAL 7.27 (7.18-7.38); PH,UMBILICAL VENOUS 7.28 (7.25-7.45)
[2025-06-18] MEDS ORDERED: Sodium Chloride 0.9% 2.5 ML Syringe FLUSH PRN (00:53)
[2025-06-18] MEDS ORDERED: Carboprost Tromethamine 250 MCG/1 mL Vial IM PRN (00:53)
[2025-06-18] MEDS ORDERED: Naloxone 0.4 MG/ML SDV IVPUSH ONE (00:53)
[2025-06-18] MEDS ORDERED: Ondansetron 4 MG/2 ML SDV IVPUSH PRN (00:53)
[2025-06-18] MEDS ORDERED: Lanolin 100% Cream 7 GM Tube TOP PRN (00:53)
[2025-06-18] MEDS ORDERED: Sodium Chloride 0.9% 10 ML Syringe FLUSH PRN (00:53)
[2025-06-18] MEDS ORDERED: Oxytocin/0.9 % Sodium Chloride 30 UNIT/500 ML BAG IV SCH (01:00)
[2025-06-18 05:44] LABS: BASOPHILS ABSOLUTE AUTO 0.01 K/uL (0.00-0.20); BASOPHILS PERCENT AUTO 0.1 % (0.0-1.0); EOSINOPHILS ABSOLUTE AUTO 0.01 K/uL (0.00-0.45); EOSINOPHILS PERCENT AUTO 0.1 % (0.0-6.0); IMMATURE GRAN ABSOLUTE AUTO 0.02 K/uL (0.00-0.05); IMMATURE GRAN PERCENT AUTO 0.3 % (0.0-0.4); LYMPHOCYTES ABSOLUTE AUTO 0.93 K/uL (1.00-4.80); LYMPHOCYTES PERCENT AUTO 12.6 % (24.0-44.0); MEAN PLATELET VOLUME 10.0 fL (9.4-12.3); MONOCYTES ABSOLUTE AUTO 0.24 K/uL (0.00-0.80); MONOCYTES PERCENT AUTO 3.3 % (0.0-8.0); NEUTROPHILS ABSOLUTE AUTO 6.15 K/uL (1.80-7.70); NEUTROPHILS PERCENT AUTO 83.6 % (41.0-71.0); NRBC ABSOLUTE 0.00 K/uL (0.00-0.02); NRBC PERCENT 0.0 /100WBC (0.0-0.2); PLATELET COUNT,PLT 136 K/uL (150-400); RED BLOOD CELL COUNT 4.42 M/uL (4.10-5.30); WHITE BLOOD CELL COUNT,WBC 7.36 K/uL (3.9-11.3)
[2025-06-18] MEDS: Ketorolac 30 MG/ML SDV IVPUSH SCH (05:51)
[2025-06-18 06:09] LABS: ALANINE AMINOTRANSFERASE,ALT 17.0 IU/L (14-63); ASPARTATE AMNIOTRANSFERASE,AST 17.0 IU/L (15-37); BILIRUBIN TOTAL 0.3 mg/dL (0.2-1.0); BLOOD UREA NITROGEN,BUN 6.0 mg/dL (7.0-18.0); CARBON DIOXIDE,CO2 24.0 mmol/L (21.0-32.0); CHLORIDE,CL 101.0 mmol/L (98-107); CREATININE 0.7 mg/dL (0.6-1.0); EST CRCL DRUG DOSING (CG) 86.6 mL/min; GLUCOSE RANDOM 162.0 mg/dL (74-106); POTASSIUM,K 4.9 mmol/L (3.5-5.1); PROTEIN TOTAL,TP 6.1 g/dL (6.4-8.2); SODIUM,NA 135.0 mmol/L (136-145)
[2025-06-18 06:12] LABS: A/G RATIO 0.7 (0.9-1.6); ESTIMATED GFR 111.0 mL/min (>60)
[2025-06-18] MEDS ORDERED: Sodium Ferric Gluconate Cmplex 125 MG in Sodium Chloride 0.9% 100 ML IV SCH (09:00)
[2025-06-19] MEDS: NIFEdipine 30 MG Tab.ER PO SCH (12:03)
[2025-06-19] MEDS: Sodium Ferric Gluconate Cmplex 125 MG in Sodium Chloride 0.9% 100 ML IV SCH (14:16)
[2025-06-20] MEDS: Sodium Ferric Gluconate Cmplex 125 MG in Sodium Chloride 0.9% 100 ML IV SCH (11:03)
== END 2025-06-20 17:29 | disposition home or self-care (01) | DRG 540 ==
LOC: MW.OBCHECK 13:32 → MW.OB 13:37 → MW.OBCHECK 14:16 → MW.OB 23:06 → OBSVTOIN 06-17 23:06 → MW.OB 06-18 02:08
PROVIDERS: ADMIT Obstetrics & Gynecology; ATTEND Obstetrics & Gynecology
PROC: 4A1HXCZ Monitoring of Products of Conception, Cardiac Rate, External Approach (ICD-10-PCS; 2025-06-17)
PROC: 10D00Z1 Extraction of Products of Conception, Low, Open Approach (ICD-10-PCS; principal; 2025-06-17 23:00)
DX: O13.4 Gestational [pregnancy-induced] hypertension without significant proteinuria, complicating childbirth (principal); Z3A.37 37 weeks gestation of pregnancy; Z37.0 Single live birth; O32.0XX0 Maternal care for unstable lie, not applicable or unspecified; O99.214 Obesity complicating childbirth; O99.12 Other diseases of the blood and blood-forming organs and certain disorders involving the immune mechanism complicating childbirth; D69.6 Thrombocytopenia, unspecified; O99.02 Anemia complicating childbirth
CPT/HCPCS: 01961; 36415; 59025; 59514; 64999; 76815; 76815-26; 76819; 76819-26; 80053; 81001; 82570; 82803; 84156; 84550; 85025; 85027; 86850; 86900; 86901; 99140; A9270-GY; J0690; J1100; J1790; J1885; J1920; J2270; J2274; J2371; J2405; J2590; J2765; J2795; J2916; J3010; J3475; J3490; J7120